=== PATIENT | male | born 1970 | race American Indian/Alaskan Native ===

== ENCOUNTER 2017-08-28 20:50 | Emergency (ER) | payer OTHER ==
--- NOTE | 2017-08-28 23:05 | XRay Report ---
FINAL REPORT PROCEDURE: Chest. TECHNIQUE: PA and lateral views. HISTORY: Cough. COMPARISON: No prior studies are available for comparison. FINDINGS: The radiographs are underpenetrated. The heart size is normal. There is a soft tissue opacity in the superior mediastinum. This pushes the trachea to the right. This could represent a substernal goiter, however other masses are possible. There is also a rounded mass located posterior and inferior to the ruthann. On the lateral view this measures approximately 8.5 centimeters in height by 4.8 centimeters in depth. Further evaluation with a contrast enhanced CT scan is recommended. The lungs are clear and well expanded. There are no pleural effusions. The soft tissues and regional skeleton are unremarkable. IMPRESSION: Abnormal mediastinal masses as described. Further evaluation recommended.
[2017-08-29] MEDS ORDERED: MOTRIN PO ONE (02:04)
[2017-08-29] MEDS ORDERED: TESSALON PERLES PO ONE (02:05)
[2017-08-29] MEDS ORDERED: NACL 0.9% 1000 ML 1,000 ML IV ONE (02:06)
--- NOTE | 2017-08-29 02:20 | Emergency Department Report ---
- General Chief Complaint: Upper Respiratory Infection Stated Complaint: FLU LIKE SX Time Seen by Provider: 08/29/17 02:05 Source: patient Mode of arrival: Ambulatory Limitations: No Limitations - History of Present Illness Initial Comments: This is a 46-year-old male nontoxic, well nourished in appearance, no acute signs of distress presents to the ED with c/o of productive cough, body aches, rhinorrhea, nasal congestion x2 days. Patient describes productive cough as yellow mucus production. Patient denies any sick contacts. 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 Patient denies any recent travels, long car, recent hospital stays. Patient denies any calf pain or calf tenderness. Patient denies any chest pain, short of breath, fever, chills, nausea, vomiting , hemoptysis, numbness, tingling, headache or stiff neck. Patient denies any drug allergies. Patient denies any allergies. 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 MD Complaint: cough, rhinorrhea, nasal congestion -: days(s) (2) Severity: mild Severity scale (0 -10): 8 Quality: aching Consistency: constant Improves With: nothing Worsens With: nothing Associated Symptoms: rhinorrhea, nasal congestion, cough. denies: fever, chills , myalgias, diaphoresis, headache, sore throat, stiff neck, chest pain, shortness of breath, abdominal pain, nausea, vomiting, diarrhea, dysuria, rash, confusion, right sweats, weight loss, epistaxis, hoarseness, ear pain Treatments Prior to Arrival: none - Related Data Previous Rx's Medication Instructions Recorded Last Taken Type Azithromycin [Zithromax Z-DIRK] 250 mg PO DAILY #6 tablet 08/29/17 Unknown Rx Benzonatate [Tessalon Perle] 100 mg PO Q6H PRN #20 capsule 08/29/17 Unknown Rx Ibuprofen [Motrin] 600 mg PO Q8H PRN #30 tablet 08/29/17 Unknown Rx Oseltamivir [Tamiflu] 75 mg PO BID #14 cap 08/29/17 Unknown Rx Allergies Allergy/AdvReac Type Severity Reaction Status Date / Time No Known Allergies Allergy Verified 08/29/17 03:59 ED Review of Systems ROS: Stated complaint: FLU LIKE SX Other details as noted in HPI Constitutional: denies: chills, fever Eyes: denies: eye pain, eye discharge, vision change ENT: denies: ear pain, throat pain Respiratory: cough. denies: shortness of breath, wheezing Cardiovascular: denies: chest pain, palpitations Endocrine: no symptoms reported Gastrointestinal: denies: abdominal pain, nausea, diarrhea Genitourinary: denies: urgency, dysuria Musculoskeletal: denies: back pain, joint swelling, arthralgia Skin: denies: rash, lesions Neurological: denies: headache, weakness, paresthesias Psychiatric: denies: anxiety, depression Hematological/Lymphatic: denies: easy bleeding, easy bruising ED Past Medical Hx - Past Medical History Previous Medical History?: No - Surgical History Past Surgical History?: No - Social History Smoking Status: Never Smoker Substance Use Type: None - Medications Home Medications: Home Medications Medication Instructions Recorded Confirmed Last Taken Type Azithromycin [Zithromax Z-DIRK] 250 mg PO DAILY #6 tablet 08/29/17 Unknown Rx Benzonatate [Tessalon Perle] 100 mg PO Q6H PRN #20 capsule 08/29/17 Unknown Rx Ibuprofen [Motrin] 600 mg PO Q8H PRN #30 tablet 08/29/17 Unknown Rx Oseltamivir [Tamiflu] 75 mg PO BID #14 cap 08/29/17 Unknown Rx ED Physical Exam - General Limitations: No Limitations General appearance: alert, in no apparent distress - Head Head exam: Present: atraumatic, normocephalic - Eye Eye exam: Present: normal appearance, PERRL, EOMI Pupils: Present: normal accommodation - ENT ENT exam: Present: normal exam, normal orophraynx, mucous membranes moist, TM's normal bilaterally, normal external ear exam - Neck Neck exam: Present: normal inspection, full ROM. Absent: tenderness, meningismus, lymphadenopathy, thyromegaly - Respiratory Respiratory exam: Present: normal lung sounds bilaterally. Absent: respiratory distress, wheezes, rales, rhonchi, stridor, chest wall tenderness, accessory muscle use, decreased breath sounds, prolonged expiratory - Cardiovascular Cardiovascular Exam: Present: regular rate, normal rhythm, normal heart sounds. Absent: bradycardia, tachycardia, irregular rhythm, systolic murmur, diastolic murmur, rubs, gallop - GI/Abdominal GI/Abdominal exam: Present: soft, normal bowel sounds. Absent: distended, tenderness, guarding, rebound, rigid, diminished bowel sounds - Rectal Rectal exam: Present: deferred - Extremities Exam Extremities exam: Present: normal inspection, full ROM, normal capillary refill. Absent: tenderness, pedal edema, joint swelling, calf tenderness - Back Exam Back exam: Present: normal inspection, full ROM. Absent: tenderness, CVA tenderness (R), CVA tenderness (L), muscle spasm, paraspinal tenderness, vertebral tenderness, rash noted - Neurological Exam Neurological exam: Present: alert, oriented X3, CN II-XII intact, normal gait, reflexes normal - Psychiatric Psychiatric exam: Present: normal affect, normal mood - Skin Skin exam: Present: warm, dry, intact, normal color. Absent: rash ED Course Vital Signs 08/28/17 21:03 Temperature 97.9 F Pulse Rate 82 Respiratory 17 Rate Blood Pressure 146/76 O2 Sat by Pulse 96 Oximetry - Reevaluation(s) Reevaluation #1: 08/29/17 02:17 Patient is speaking in full sentences with no signs of distress noted. - Consultations Consultation #1: 08/29/17 06:02 Patient has been consulted with Dr. Gramajo about patient history, physical exam, and labs/imaging studies agrees to ED plan of care and discharge plan of care. ED Medical Decision Making - Lab Data Result diagrams: 08/29/17 02:20 08/29/17 02:20 - Medical Decision Making This is a 46-year-old male that presents with upper respiratory infection and influenza. Patient is stable and was examined by me. Chest x-ray has been obtained and dictated by radiologist with mutiple masses in the mediastinal. CT of chest with contrast obtained and dictated by radgolosit. Patient is notified of x-ray results with no questions noted. Patient stated xray and CT findings is normal for him as he had several CT results with same findings and stated he was diagnosed with mutiple "calcium buildup in those regions". Due to patient having symptoms of influenza and upper respiratory infection I will treat patient empirically with Tamiflu and zpak. Patient was instructed to increase hydration, rest and take Motrin for fever episodes. Patient received Motrin and tesslone perrls in the ED. Vitals stable. Patient is nonfebrile and normal heart rate. Patient was orally hydrated and patient tolerated well known nausea or vomiting. Patient was instructed Follow-up with a primary care doctor in 3-5 days or if symptoms worsen and continue return to emergency room as soon as possible. At time time of discharge, the patient does not seem toxic or ill in appearance. No acute signs of distress noted. Patient agrees to discharge treatment plan of care. No further questions noted by the patient. Critical care attestation.: If time is entered above; I have spent that time in minutes in the direct care of this critically ill patient, excluding procedure time. 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 Increase rest, hydration and take Motrin for fever episodes. Prescriptions: Azithromycin [Zithromax Z-DIRK] 250 mg PO DAILY #6 tablet Benzonatate [Tessalon Perle] 100 mg PO Q6H PRN #20 capsule PRN Reason: Cough Ibuprofen [Motrin] 600 mg PO Q8H PRN #30 tablet PRN Reason: Pain Oseltamivir [Tamiflu] 75 mg PO BID #14 cap Referrals: PRIMARY MD VERONICA [Primary Care Provider] - 3-5 Days WESLEY SALMERON [Registered Nurse] - 3-5 Days ESEQUIEL HUTCHINS MD [Staff Physician] - 3-5 Days DALILA LEDEZMA MD [Staff Physician] - 3-5 Days [facility] [Outside] - 3-5 Days [facility] [Outside] - 3-5 Days Forms: Work/School Release Form(ED)
[2017-08-29 02:51] LABS: Basophils % (Auto) 0.3 % (0.0-1.8); Eosinophils # (Auto) 0.3 K/mm3 (0.0-0.4); Eosinophils % (Auto) 3.3 % (0.0-4.3); Hematocrit 44.7 % (35.5-45.6); Hemoglobin 14.6 gm/dl (11.8-15.2); Lymphocytes # (Auto) 2.4 K/mm3 (1.2-5.4); Lymphocytes % (Auto) 31.3 % (13.4-35.0); Mean Corpuscular HGB Conc 33 % (32-34); Mean Corpuscular Hemoglobin 28 pg (28-32); Mean Corpuscular Volume 87 fl (84-94); Monocytes # (Auto) 0.9 K/mm3 (0.0-0.8); Monocytes % (Auto) 11.8 % (0.0-7.3); Platelet Count 243 K/mm3 (140-440); Red Blood Count 5.14 M/mm3 (3.65-5.03); Red Cell Distribution Width 13.6 % (13.2-15.2)
[2017-08-29 03:15] LABS: BUN/Creatinine Ratio 13; Blood Urea Nitrogen 12 mg/dL (9-20); Calcium 8.9 mg/dL (8.4-10.2); Hemolysis Index 3
[2017-08-29] MEDS ORDERED: NACL ONE (03:39)
--- NOTE | 2017-08-29 05:54 | Cat Scan Report ---
FINAL REPORT PROCEDURE: CT CHEST W CON TECHNIQUE: Computerized axial tomography of the chest was performed during the IV injection of iodinated nonionic contrast. HISTORY: cough with abnormal xray COMPARISON: No prior studies are available for comparison. TECHNICAL QUALITY: Satisfactory. FINDINGS: Heart and pericardium: Normal. Thoracic aorta: Normal. Pulmonary vasculature: Normal. Lymph nodes: There is a calcified mass in the right azygos esophageal recess extending into the subcarinal space of the mediastinum and the right is hilar region. This measures 6.6 x 12.3 by 5 centimeters. This could be a large calcified lymph node or crescencio mass possibly associated with old granulomatous infection including tuberculosis or histoplasmosis. Possibilities also include sarcoidosis, silicosis or treated lymphoma.. Metastatic malignancy not excluded. Lungs: Lungs are well-expanded. There are no active infiltrates. There is no pulmonary nodule or parenchymal mass. Pleural space: No effusion, thickening, or pneumothorax. Musculoskeletal structures: No significant abnormality. Upper abdominal structures: Images of the upper abdomen demonstrate a 16 millimeter enhancing mass in the right lobe of the liver. This could be an adenoma, atypical hemangioma or neoplasm. There is fatty infiltration of the liver.. There is a partially imaged left thyroid mass extending into the superior mediastinum measuring at least 11 centimeters suggesting substernal goiter. IMPRESSION: There is a calcified mass in the right azygos esophageal recess extending into the subcarinal space of the mediastinum and the right is hilar region. This measures 6.6 x 12.3 by 5 centimeters. This could be a large calcified lymph node or crescencio mass possibly associated with old granulomatous infection including tuberculosis or histoplasmosis. Possibilities also include sarcoidosis, silicosis or treated lymphoma.. Metastatic malignancy not excluded. Lungs are well-expanded. There are no active infiltrates. There is no pulmonary nodule or parenchymal mass. There is no pleural effusion or pneumothorax. There is a 16 millimeter enhancing mass in the right lobe of the liver. This could be an adenoma, atypical hemangioma or neoplasm. There is fatty infiltration of the liver.. There is a partially imaged left thyroid mass extending into the superior mediastinum measuring at least 11 centimeters suggesting substernal goiter.
[2017-08-29 07:31] VITALS: BP 138/74
== END 2017-08-29 07:29 | disposition home or self-care (01) ==
LOC: ED 20:50
DX: J11.1 Influenza due to unidentified influenza virus with other respiratory manifestations (principal); E04.9 Nontoxic goiter, unspecified; R91.8 Other nonspecific abnormal finding of lung field; J06.9 Acute upper respiratory infection, unspecified
CPT/HCPCS: 36415; 71046; 71260; 80048; 82550; 85025; 99284; J7030; Q9967

== ENCOUNTER 2017-09-22 20:25 | Emergency (ER) | payer OTHER ==
--- NOTE | 2017-09-23 02:35 | Emergency Department Report ---
ED Headache HPI - General Chief Complaint: Headache Stated Complaint: HTN,H/A Time Seen by Provider: 09/23/17 01:30 Source: patient, family Exam Limitations: no limitations - History of Present Illness Initial Comments: Patient here reported headache that feels like pressure that started last night it's been waxing and waning in. Reported dizziness with some nausea. Pain feels like pressure 8 out of 10 located to both sides of her head. Bilateral parietal area. Patient had several similar headache and said he had CT scan 2 years ago and he didn't see any abnormality. Patient's also reporting that he has a rash in the left side of his neck that he has had in the past but has not follow-up for that either. Rash is itchy but not painful. He denies any chest pain or shortness of breath. Patient is here he said they just moved here and he has not established a primary care physician and he is on blood pressure medication for high blood pressure which is HCTZ. He produced the empty prescription bottle. He said he is out of this medication and also needs to be referred to primary care for management of his blood pressure. Patient was here on 08/29/2017 and was treated for flulike symptoms. He came in with cough and congestion and had a CT scan done of his chest with IV contrast due to abnormal x-ray and it showed that patient had calcified mass in the regions of lymph nodes. Lungs are well-expanded. No active infiltrates. There were no pulmonary nodules or peritoneal mass. Patient said that he is had this for 10 years and they told them if the calcification. Patient is not having any respiratory symptoms. Denies any fever. Denies any vomiting. Denies any abdominal pain or diarrhea. [id number] pain medication taking with little relief. He denies any neck stiffness. Denies any nasal congestion or coughing. Timing/Duration: episodic, waxing and waning Quality: severe, achy, pressure Head Injury Location: parietal Recent Head Trauma: chronic headaches Modifying Factors: improves with: movement, rest Associated Symptoms: nausea/vomiting, rash, other (reports neck pain and dizziness). denies: confusion, fatigue, facial pain, loss of consciousness, nasal congestion, nasal drainage, numbness in legs/feet, seizures, sinus infection, stiff neck, vision changes, weakness Allergies/Adverse Reactions: Allergies No Known Allergies Allergy (Verified 08/29/17 03:59) Home Medications: Ambulatory Orders Azithromycin [Zithromax Z-DIRK] 250 mg PO DAILY #6 tablet 08/29/17 Benzonatate [Tessalon Perle] 100 mg PO Q6H PRN #20 capsule 08/29/17 Ibuprofen [Motrin] 600 mg PO Q8H PRN #30 tablet 08/29/17 Oseltamivir [Tamiflu] 75 mg PO BID #14 cap 08/29/17 Hydrochlorothiazide [HCTZ] 25 mg PO QDAY 30 Days #30 tablet 09/23/17 Ondansetron [Zofran Odt] 4 mg PO Q8H PRN #12 tab.rapdis 09/23/17 Triamcinolone 0.1% [Kenalog 0.1% CREAM] 1 applic TP BID 7 Days #1 tube 09/23/17 traMADol [Ultram] 50 mg PO Q6HR PRN #12 tablet 09/23/17 ED Review of Systems ROS: Stated complaint: HTN,H/A Other details as noted in HPI Comment: All other systems reviewed and negative Constitutional: no symptoms reported ENT: denies: ear pain, throat pain, epistaxis, congestion Respiratory: no symptoms reported Cardiovascular: denies: chest pain, palpitations, dyspnea on exertion, edema, syncope, paroxysmal nocturnal dyspnea Gastrointestinal: nausea. denies: abdominal pain, vomiting, constipation, hematemesis, melena, hematochezia Genitourinary: denies: dysuria, hematuria Musculoskeletal: arthralgia. denies: back pain, joint swelling, myalgia Skin: rash, pruritus Neurological: headache, other (dizziness). denies: weakness, numbness, paresthesias, confusion, abnormal gait, vertigo ED Past Medical Hx - Past Medical History Previous Medical History?: Yes Hx Hypertension: Yes (ran out of HCTZ) Additional medical history: thyroid prob. Calcified mass in lymph nodes chest greater than 10 years - Surgical History Past Surgical History?: No - Family History Family history: hypertension - Social History Smoking Status: Never Smoker Substance Use Type: None - Medications Home Medications: Home Medications Medication Instructions Recorded Confirmed Last Taken Type Azithromycin [Zithromax Z-DIRK] 250 mg PO DAILY #6 tablet 08/29/17 Unknown Rx Benzonatate [Tessalon Perle] 100 mg PO Q6H PRN #20 capsule 08/29/17 Unknown Rx Ibuprofen [Motrin] 600 mg PO Q8H PRN #30 tablet 08/29/17 Unknown Rx Oseltamivir [Tamiflu] 75 mg PO BID #14 cap 08/29/17 Unknown Rx Hydrochlorothiazide [HCTZ] 25 mg PO QDAY 30 Days #30 tablet 09/23/17 Unknown Rx Ondansetron [Zofran Odt] 4 mg PO Q8H PRN #12 tab.rapdis 09/23/17 Unknown Rx Triamcinolone 0.1% [Kenalog 0.1% 1 applic TP BID 7 Days #1 tube 09/23/17 Unknown Rx CREAM] traMADol [Ultram] 50 mg PO Q6HR PRN #12 tablet 09/23/17 Unknown Rx ED Physical Exam - General Limitations: No Limitations General appearance: alert, in no apparent distress - Head Head exam: Present: atraumatic, normocephalic, normal inspection - Expanded Head Exam Expanded Head exam: Absent: laceration, abrasion, contusion, hematoma, racoon eyes, wolf's sign, general tenderness, tenderness of temporal artery, CSF rhinorrhea , CSF otorrhea - Eye Eye exam: Present: normal appearance, PERRL, EOMI. Absent: scleral icterus, conjunctival injection, nystagmus, periorbital swelling, periorbital tenderness Pupils: Present: normal accommodation - ENT ENT exam: Present: normal exam, normal orophraynx, mucous membranes moist, TM's normal bilaterally, normal external ear exam - Neck Neck exam: Present: normal inspection, full ROM, other (no C-spine tenderness). Absent: tenderness, meningismus, lymphadenopathy, thyromegaly - Expanded Neck Exam Expanded Neck exam: Absent: tenderness, midline deformity, anterior neck swelling, carotid bruit, tracheal deviation - Respiratory Respiratory exam: Present: normal lung sounds bilaterally. Absent: respiratory distress, chest wall tenderness - Cardiovascular Cardiovascular Exam: Present: regular rate, normal rhythm, normal heart sounds. Absent: systolic murmur, diastolic murmur - GI/Abdominal GI/Abdominal exam: Present: soft, normal bowel sounds. Absent: distended, tenderness, guarding, rebound, rigid, organomegaly, mass, bruit, pulsatile mass , hernia - Extremities Exam Extremities exam: Present: normal inspection, full ROM, normal capillary refill , other (no no clubbing, cyanosis or edema. +2 pulses all extremities and no neurovascular compromise). Absent: tenderness, pedal edema, joint swelling, calf tenderness - Back Exam Back exam: Present: normal inspection, full ROM, other (ambulates without any difficulties.). Absent: tenderness, CVA tenderness (L), muscle spasm, paraspinal tenderness, vertebral tenderness, rash noted - Neurological Exam Neurological exam: Present: alert, oriented X3, normal gait, reflexes normal. Absent: motor sensory deficit - Expanded Neurological Exam Expanded Neurological exam: Absent: innattentive, memory loss-remote event, memory loss- recent event, ataxia, receptive aphasia, expressive aphasia, total aphasia, tremor, protecting the airway Patient oriented to: Present: person, place, time Speech: Present: fluid speech Cranial nerves: EOM's Intact: Normal, Gag Reflex: Normal, Tongue Deviation: Normal, Nystagmus: Normal, Facial Sensation: Normal Cerebellar function: Romberg: Normal Upper motor neuron: Pronator Drift: Normal, Sensory Extinction: Normal Sensory exam: Upper Extremity Light Touch: Normal, Upper Extremity Pin Prick: Normal, Upper Extremity Temperature: Normal, UE 2 Point Discrimination: Normal, Lower Extremity Light Touch: Normal, Lower Extremity Pin Prick: Normal, Lower Extremity Temperature: Normal, LE 2 Point Discrimination: Normal Motor strength exam: RUE: 5, LUE: 5, RLE: 5, LLE: 5 DTR: bicep (R): 2+, bicep (L): 2+, tricep (R): 2+, tricep (L): 2+, knee (R): 2+ , knee (L): 2+, ankle (R): 2+, ankle (L): 2+ Best Eye Response ([place]): (4) open spontaneously Best Motor Response ([place]): (6) obeys commands Best Verbal Response ([place]): (5) oriented [place] Total: 15 - Psychiatric Psychiatric exam: Present: normal affect, normal mood - Skin Skin exam: Present: warm, dry, normal color, rash. Absent: erythema, urticaria , vesicles - Expanded Skin Exam Expanded Type of lesion: Present: rash Distribution of rash: neck (left posterior neck) Description of rash: Present: macular, papular. Absent: tenderness, erythematous, swelling, vesicular, blisters, confluent, bullous, petechial, purpuic, urticarial, crusting, discharge, fluctuant, indurated 1 - Maculopapular rash noted to left posterior neck. No signs of infection. Appears to be contact dermatitis. ED Course Vital Signs 09/22/17 21:35 Temperature 98.7 F Pulse Rate 83 Respiratory 18 Rate Blood Pressure 148/83 O2 Sat by Pulse 96 Oximetry Vital Signs 09/22/17 21:35 Temperature 98.7 F Pulse Rate 83 Respiratory 18 Rate Blood Pressure 148/83 O2 Sat by Pulse 96 Oximetry Vital Signs (72 hours) 09/22/17 21:35 Temperature 98.7 F Pulse Rate 83 Respiratory 18 Rate Blood Pressure 148/83 O2 Sat by Pulse 96 Oximetry - Reevaluation(s) Reevaluation #1: 09/23/17 02:53 Patient vital signs remained stable throughout ED course. Headache had subsided without any medication. Patient refused CT scan of the head because he said he does not time and he has to go to work tomorrow. See signed refusal. She given Tylenol 3 2 tablets when necessary emergency room for headache. His nausea and neck pain has resolved. ED Medical Decision Making - Medical Decision Making ED course: Patient here complaining of headache, nausea with dizziness and neck pain. He said he had similar episodes in the past. He's had multiple episodes of headache and thought that his headache is like his of his blood pressure because he ran out of his blood pressure medication. Patient blood pressure remained stable throughout ED stay. He is neurologically intact with no C- spine tenderness. Patient has rash to left side of her neck that appears allergic in nature. He's also studies had similar rashes in the past. Patient was here on August 2017 and was diagnosed with viral infection and was treated. He had a CT scan of the chest with IV contrast due to abnormal x-ray which showed calcified mass in the areas of lymph nodes and patient's studies had this for over 10 years. Patient is not complaining of any respiratory symptoms. Patient given Tylenol 3 2 tablets prior to discharge Patient refused CT scan of the head because he said he does not want to wait. He said he thought his blood pressure was elevated but it stable and he is at work and morning. Please refer to fine refusal for CT scan of the head. Patient may take exam is normal. I discussed the patient that it is very imperative that he follows up with primary care doctor to manage his multiple medical problem to include high blood pressure, thyroid problem that he said he supposed to be following up with a doctor for. I also discussed with him due to his chronic headaches he will need to follow up with a neurologist for further evaluation. Patient does have access to healthcare. He agrees to follow up with primary care and neurologist. Patient discharged home in stable condition with prescription for Ultram and refill on HCTZ. I discussed with him that he needs to make sure that he eats at least 2 bananas a day to prevent low potassium as water medication for his blood pressure can cause low potassium. Patient is stable and discharged home with his remember in stable condition. Critical care attestation.: If time is entered above; I have spent that time in minutes in the direct care of this critically ill patient, excluding procedure time. ED Disposition Clinical Impression: Dizziness, Patient refusal of treatment, Medication refill, Nausea alone, Neck pain, bilateral Headache Qualifiers: Headache type: unspecified Headache chronicity pattern: episodic headache Intractability: not intractable Qualified Code(s): R51 - Headache Contact dermatitis Qualifiers: Contact dermatitis type: unspecified Contact dermatitis trigger: unspecified trigger Qualified Code(s): L25.9 - Unspecified contact dermatitis, unspecified cause Disposition: DC-01 TO HOME OR SELFCARE Is pt being admited?: No Does the pt Need Aspirin: No Condition: Stable Instructions: Acute Headache (ED), Musculoskeletal Pain (ED) Additional Instructions: Please follow up with primary care doctors referrals. Call in the morning to schedule appointment. You need a primary care doctor to manage her chronic medical problem. Diagnosis of high blood pressure needs to be managed by a primary care doctor because she will need to have occasional lab work to monitor your kidney function. Please follow up with neurologist regarding chronic headaches. Take medication for skin rash Take Ultram for headache but please do not drive or operate heavy machinery while taking this medication as this medication can cause drowsiness. You can take zofran for nausea as needed. Prescriptions: Hydrochlorothiazide [HCTZ] 25 mg PO QDAY 30 Days #30 tablet Ondansetron [Zofran Odt] 4 mg PO Q8H PRN #12 tab.rapdis PRN Reason: Nausea And Vomiting traMADol [Ultram] 50 mg PO Q6HR PRN #12 tablet PRN Reason: Pain Triamcinolone 0.1% [Kenalog 0.1% CREAM] 1 applic TP BID 7 Days #1 tube Referrals: [facility] [Outside] - 09/24/17 ELIZABETH PHAN MD [Staff Physician] - 3-5 Days ELIZABETH SALAZAR MD [Staff Physician] - 09/24/17 DILIA MOROCHO MD [Staff Physician] - 09/24/17 Forms: Accompanied Note, Work/School Release Form(ED)
[2017-09-23] MEDS ORDERED: TYLENOL #3 PO ONE (02:58)
[2017-09-23 03:20] VITALS: BP 116/80
== END 2017-09-23 03:19 | disposition home or self-care (01) ==
LOC: ED 20:25
DX: R42 Dizziness and giddiness (principal); R51 Headache; M54.2 Cervicalgia; R11.0 Nausea; L25.9 Unspecified contact dermatitis, unspecified cause; I10 Essential (primary) hypertension
CPT/HCPCS: 99282

== ENCOUNTER 2018-01-04 13:18 | Emergency (ER) | payer SELFPAY ==
[2018-01-04 13:36] VITALS: BP 159/84
[2018-01-04] MEDS ORDERED: FUL-GLO OP ONE (14:10)
[2018-01-04] MEDS ORDERED: TETRACAINE 0.5% OU ONE (14:11)
--- NOTE | 2018-01-04 14:12 | Emergency Department Report ---
Chief Complaint: Eye Problems Stated Complaint: BILATERAL EYE PAIN Time Seen by Provider: 01/04/18 14:05 - HPI History of Present Illness: 47-year-old Afro-[place]onese male presents to the emergency department with complaint of a one to 2 day history of bilateral eye redness, irritation and now since this morning some discharge and crusting. He says that he does have his grandchildren staying with them and they have some cold-like symptoms but none of them have any eye complaints or similar symptoms. He wears contacts. 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 He denies any fever, headache. He has not taken anything for her symptoms prior presentation. - ROS Review of Systems: Positive for eye redness, irritation, discharge, crusting Negative for fever, headache - Exam Vital Signs: Vital Signs 01/04/18 13:33 Temperature 98.6 F Pulse Rate 94 H Blood Pressure 159/84 O2 Sat by Pulse 96 Oximetry Physical Exam: Pupils equal reactive to light bilaterally. Extraocular motion intact. He has bilateral conjunctival injection. MSE screening note: Focused history and physical exam performed. Due to findings the following was ordered: He will have a visual acuity test. He will get tetracaine and fluorescein and used the Wood's lamp to check for corneal abrasion or fluorescein uptake. ED Disposition for MSE Condition: Stable Referrals: PRIMARY CARE, [Primary Care Provider] - 3-5 Days
--- NOTE | 2018-01-04 15:00 | Emergency Department Report ---
HPI - General Chief Complaint: Eye Problems Time Seen by Provider: 01/04/18 14:05 - HPI HPI: 47-year-old Afro-[place] male presents to the emergency department with complaint of a one to 2 day history of bilateral eye redness, irritation and now since this morning some discharge and crusting. He says that he does have his grandchildren staying with them and they have some cold-like symptoms but none of them have any eye complaints or similar symptoms. He wears contacts. 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 He denies any fever, headache. He has not taken anything for her symptoms prior presentation. ED Past Medical Hx - Past Medical History Hx Hypertension: Yes (ran out of HCTZ) Additional medical history: thyroid prob. Calcified mass in lymph nodes chest greater than 10 years - Surgical History Past Surgical History?: No - Social History Smoking Status: Never Smoker Substance Use Type: None - Medications Home Medications: Home Medications Medication Instructions Recorded Confirmed Last Taken Type Azithromycin [Zithromax Z-DIRK] 250 mg PO DAILY #6 tablet 08/29/17 Unknown Rx Benzonatate [Tessalon Perle] 100 mg PO Q6H PRN #20 capsule 08/29/17 Unknown Rx Ibuprofen [Motrin] 600 mg PO Q8H PRN #30 tablet 08/29/17 Unknown Rx Oseltamivir [Tamiflu] 75 mg PO BID #14 cap 08/29/17 Unknown Rx Hydrochlorothiazide [HCTZ] 25 mg PO QDAY 30 Days #30 tablet 09/23/17 Unknown Rx Ondansetron [Zofran Odt] 4 mg PO Q8H PRN #12 tab.rapdis 09/23/17 Unknown Rx Triamcinolone 0.1% [Kenalog 0.1% 1 applic TP BID 7 Days #1 tube 09/23/17 Unknown Rx CREAM] traMADol [Ultram] 50 mg PO Q6HR PRN #12 tablet 09/23/17 Unknown Rx Tobramycin [Tobrex] 1 drop OU Q6H #1 bottle 01/04/18 Unknown Rx ED Review of Systems ROS: Stated complaint: BILATERAL EYE PAIN Other details as noted in HPI Comment: All other systems reviewed and negative Constitutional: denies: chills, fever Eyes: eye pain, eye discharge ENT: denies: ear pain, throat pain Respiratory: denies: cough, shortness of breath Cardiovascular: denies: chest pain, palpitations Gastrointestinal: denies: abdominal pain, nausea Genitourinary: denies: urgency, dysuria Musculoskeletal: denies: back pain, joint swelling, arthralgia Skin: denies: rash, lesions Neurological: denies: headache, weakness Physical Exam - Physical Exam Vital Signs: Vital Signs 01/04/18 13:33 Temperature 98.6 F Pulse Rate 94 H Blood Pressure 159/84 O2 Sat by Pulse 96 Oximetry Physical Exam: GENERAL: The patient is well-developed well-nourished. HENT: Normocephalic. Atraumatic. Patient has moist mucous membranes. EYES: Extraocular motions are intact. Pupils equal reactive to light bilaterally. No nystagmus. Bilateral diffusely injected conjunctiva. There is some mild tearing. There is no fluorescein uptake with wood lamp examination. NECK: Supple. Trachea is midline. CHEST/LUNGS: Clear to auscultation. There is no respiratory distress noted. HEART/CARDIOVASCULAR: Regular. There is no tachycardia. There is no murmur. ABDOMEN: There is no abdominal distention. SKIN: Skin is warm and dry. NEURO: The patient is awake, alert, and oriented. The patient is cooperative. The patient has no focal neurologic deficits. The patient has normal speech. MUSCULOSKELETAL: There is no tenderness or deformity. There is no limitation range of motion. There is no evidence of acute injury. ED Course Vital Signs 01/04/18 13:33 Temperature 98.6 F Pulse Rate 94 H Blood Pressure 159/84 O2 Sat by Pulse 96 Oximetry ED Medical Decision Making - Medical Decision Making Patient presents with a 2 day history of some redness and irritation to the bilateral eyes. No vision change. Vital signs stable. Being afebrile. There was no sign of any corneal abrasion or ulceration or any fluorescein uptake on examination. It appears most consistent with bilateral conjunctivitis. Since he has the complaint of some previous discharge and crusting, and will be treated as a bacterial conjunctivitis and he has been placed on Tobrex. 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 We discussed infection control. He has been given referrals for ophthalmologists for both this conjunctivitis as well as to establish care with one since he already wears glasses and/or contacts. He will return to the ER with any worsening of his symptoms or any acute distress. - Differential Diagnosis conjunctivitis, corneal abrasion, iritis Critical Care Time: No Critical care attestation.: If time is entered above; I have spent that time in minutes in the direct care of this critically ill patient, excluding procedure time. ED Disposition Clinical Impression: Bilateral conjunctivitis Qualifiers: Conjunctivitis type: acute Acute conjunctivitis type: unspecified Qualified Code(s): H10.33 - Unspecified acute conjunctivitis, bilateral Hypertension Qualifiers: Hypertension type: essential hypertension Qualified Code(s): I10 - Essential ( primary) hypertension Disposition: DC- TO HOME OR SELFCARE Is pt being admited?: No Condition: Stable Instructions: Conjunctivitis (ED), Hypertension (ED) Additional Instructions: Please follow up with a primary care physician in the next few days. I have also given a referral for multiple ophthalmologists to follow up regarding your conjunctivitis as well as to establish care regarding your need for contact/ glasses. Return to the emergency Department with any worsening of her symptoms or any acute distress. Make sure that you wash your hands thoroughly and that you do not touch your eyes and then anybody else or anybody else's food/drinks to try and avoid the spread of infection. I recommend washing your pillow cases and sheets. Prescriptions: Tobramycin [Tobrex] 1 drop OU Q6H #1 bottle Referrals: KELLY ADAMS MD [Staff Physician] - 2-3 Days [facility] [Provider Group] - 2-3 Days PRIMARY CARE, [Primary Care Provider] - 3-5 Days Forms: Work/School Release Form(ED) Time of Disposition: 15:00
== END 2018-01-04 15:09 | disposition home or self-care (01) ==
LOC: ED 13:18
DX: H10.33 Unspecified acute conjunctivitis, bilateral (principal); I10 Essential (primary) hypertension

== ENCOUNTER 2018-03-07 17:35 | Emergency (ER) | payer OTHER ==
[2018-03-07] MEDS ORDERED: ASPIRIN PO ONE (18:23)
[2018-03-07 19:00] LABS: Basophils # (Auto) 0.1 K/mm3 (0.0-0.1); Basophils % (Auto) 1.1 % (0.0-1.8); Eosinophils # (Auto) 0.2 K/mm3 (0.0-0.4); Eosinophils % (Auto) 1.8 % (0.0-4.3); Hematocrit 45.9 % (35.5-45.6); Hemoglobin 14.9 gm/dl (11.8-15.2); Lymphocytes # (Auto) 2.9 K/mm3 (1.2-5.4); Lymphocytes % (Auto) 28.6 % (13.4-35.0); Mean Corpuscular HGB Conc 33 % (32-34); Mean Corpuscular Hemoglobin 28 pg (28-32); Mean Corpuscular Volume 87 fl (84-94); Monocytes # (Auto) 1.2 K/mm3 (0.0-0.8); Monocytes % (Auto) 11.6 % (0.0-7.3); Platelet Count 299 K/mm3 (140-440); Red Cell Distribution Width 14.1 % (13.2-15.2)
[2018-03-07 19:20] LABS: BUN/Creatinine Ratio 13; Blood Urea Nitrogen 14 mg/dL (9-20); Calcium 9.7 mg/dL (8.4-10.2); Hemolysis Index 15
--- NOTE | 2018-03-07 20:20 | XRay Report ---
FINAL REPORT PROCEDURE: XR CHEST ROUTINE 2V TECHNIQUE: PA and lateral chest radiographs were obtained. CPT 39290 HISTORY: chest pain COMPARISON: 08/28/2017 FINDINGS: Heart: Normal. Mediastinum/Vessels: A left paratracheal mass displacing the trachea to the right consistent with goiter is again noted. A large mediastinal mass as described in the prior chest radiograph and CT chest of 08/29/2017 is again noted without interval change. Lungs/Pleural space: Normal. Bony thorax: No acute osseous abnormality. Other: IMPRESSION: No acute pulmonary process. A large calcified mediastinal mass most likely representing a calcified lymph node is stable. Stable goiter..
--- NOTE | 2018-03-07 22:51 | Emergency Department Report ---
ED General Adult HPI - General Chief complaint: Chest Pain Stated complaint: CHEST PAIN/RT SIDE PAIN/BACK PAIN Time Seen by Provider: 03/07/18 22:48 Source: patient, RN notes reviewed, old records reviewed Mode of arrival: Ambulatory Limitations: No Limitations - History of Present Illness Initial comments: This is a 47-year-old gentleman who is not known to this provider previously. The patient has a primary care doctor, but he can't recall the name of his primary care doctor. He reports a past medical history of hypertension, and childhood fungal disease, goiter, chronic pulmonary calcifications that have been demonstrated on imaging in the past. The patient presents to the ER with complaint of nontraumatic left posterior thoracic pain that radiates around to the front, and resolved shortness of breath. The pain is sharp, and does not have exacerbating or relieving factors. It has since resolved. He currently does not have shortness of breath. He also describes intermittent pain on the right parathoracic region radiating around to the front. He currently does not have chest pain, he denies testicular pain, he denies urinary symptoms, he does have cough. He denies cocaine use, he denies leg pain or leg swelling. He denies lower abdominal pain. -: Gradual Location: back Radiation: other Quality: other Consistency: other Improves with: other Worsens with: other Associated Symptoms: chest pain, shortness of breath. denies: confusion, cough , diaphoresis, fever/chills, headaches, loss of appetite, malaise, nausea/ vomiting, rash, seizure, syncope, weakness - Related Data Previous Rx's Medication Instructions Recorded Last Taken Type Azithromycin [Zithromax Z-DIRK] 250 mg PO DAILY #6 tablet 08/29/17 Unknown Rx Benzonatate [Tessalon Perle] 100 mg PO Q6H PRN #20 capsule 08/29/17 Unknown Rx Ibuprofen [Motrin] 600 mg PO Q8H PRN #30 tablet 08/29/17 Unknown Rx Oseltamivir [Tamiflu] 75 mg PO BID #14 cap 08/29/17 Unknown Rx Ondansetron [Zofran Odt] 4 mg PO Q8H PRN #12 tab.rapdis 09/23/17 Unknown Rx Triamcinolone 0.1% [Kenalog 0.1% 1 applic TP BID 7 Days #1 tube 09/23/17 Unknown Rx CREAM] hydroCHLOROthiazide [HCTZ] 25 mg PO QDAY 30 Days #30 tablet 09/23/17 Unknown Rx traMADol [Ultram] 50 mg PO Q6HR PRN #12 tablet 09/23/17 Unknown Rx Tobramycin [Tobrex] 1 drop OU Q6H #1 bottle 01/04/18 Unknown Rx Acetaminophen [Tylenol Arthritis] 650 mg PO Q6HR PRN #30 tablet.er 03/08/18 Unknown Rx Aspirin [Aspirin BABY CHEW TAB] 81 mg PO QDAY #30 tab.chew 03/08/18 Unknown Rx Ibuprofen [Motrin] 600 mg PO Q8H PRN #30 tablet 03/08/18 Unknown Rx Allergies Allergy/AdvReac Type Severity Reaction Status Date / Time No Known Allergies Allergy Verified 08/29/17 03:59 ED Review of Systems ROS: Stated complaint: CHEST PAIN/RT SIDE PAIN/BACK PAIN Other details as noted in HPI Comment: All other systems reviewed and negative ED Past Medical Hx - Past Medical History Hx Hypertension: Yes (ran out of HCTZ) Additional medical history: thyroid prob. Calcified mass in lymph nodes chest greater than 10 years - Surgical History Past Surgical History?: No - Social History Smoking Status: Never Smoker Substance Use Type: Alcohol - Medications Home Medications: Home Medications Medication Instructions Recorded Confirmed Last Taken Type Azithromycin [Zithromax Z-DIRK] 250 mg PO DAILY #6 tablet 08/29/17 Unknown Rx Benzonatate [Tessalon Perle] 100 mg PO Q6H PRN #20 capsule 08/29/17 Unknown Rx Ibuprofen [Motrin] 600 mg PO Q8H PRN #30 tablet 08/29/17 Unknown Rx Oseltamivir [Tamiflu] 75 mg PO BID #14 cap 08/29/17 Unknown Rx Ondansetron [Zofran Odt] 4 mg PO Q8H PRN #12 tab.rapdis 09/23/17 Unknown Rx Triamcinolone 0.1% [Kenalog 0.1% 1 applic TP BID 7 Days #1 tube 09/23/17 Unknown Rx CREAM] hydroCHLOROthiazide [HCTZ] 25 mg PO QDAY 30 Days #30 tablet 09/23/17 Unknown Rx traMADol [Ultram] 50 mg PO Q6HR PRN #12 tablet 09/23/17 Unknown Rx Tobramycin [Tobrex] 1 drop OU Q6H #1 bottle 01/04/18 Unknown Rx Acetaminophen [Tylenol Arthritis] 650 mg PO Q6HR PRN #30 tablet.er 03/08/18 Unknown Rx Aspirin [Aspirin BABY CHEW TAB] 81 mg PO QDAY #30 tab.chew 03/08/18 Unknown Rx Ibuprofen [Motrin] 600 mg PO Q8H PRN #30 tablet 03/08/18 Unknown Rx ED Physical Exam - General Limitations: No Limitations General appearance: alert, in no apparent distress - Head Head exam: Present: atraumatic, normocephalic - Eye Eye exam: Present: normal appearance, EOMI. Absent: nystagmus - ENT ENT exam: Present: normal exam, normal orophraynx, mucous membranes moist, normal external ear exam - Neck Neck exam: Present: normal inspection, full ROM - Respiratory Respiratory exam: Present: normal lung sounds bilaterally, chest wall tenderness. Absent: respiratory distress - Cardiovascular Cardiovascular Exam: Present: regular rate, normal rhythm. Absent: systolic murmur, diastolic murmur, rubs, gallop - GI/Abdominal GI/Abdominal exam: Present: soft. Absent: distended, tenderness, guarding, rebound, rigid, pulsatile mass - Rectal Rectal exam: Present: deferred - Extremities Exam Extremities exam: Present: normal inspection, full ROM, normal capillary refill , other (2+ pulses noted in the bilateral upper, lower extremities. Compartments soft. No long bony tenderness. The pelvis is stable.). Absent: tenderness, pedal edema, joint swelling, calf tenderness - Back Exam Back exam: Present: normal inspection, full ROM. Absent: tenderness, CVA tenderness (R), paraspinal tenderness, vertebral tenderness - Neurological Exam Neurological exam: Present: alert, oriented X3, CN II-XII intact, normal gait, other (Extraocular movements intact. Tongue midline. No facial droop. Facial sensation intact to light touch in the V1, V2, V3 distribution bilaterally. 5 and 5 strength in 4 extremities.. Sensation is intact to light touch in 4 extremities.). Absent: motor sensory deficit - Psychiatric Psychiatric exam: Present: normal affect, normal mood - Skin Skin exam: Present: warm, dry, intact, normal color. Absent: rash ED Course Vital Signs 03/07/18 03/07/18 03/07/18 18:18 22:42 22:45 Temperature 98 F Pulse Rate 94 H 78 Respiratory 16 12 Rate Blood Pressure 144/81 Blood Pressure [Right] O2 Sat by Pulse 96 92 Oximetry 03/07/18 03/07/18 22:49 23:00 Temperature 98.6 F Pulse Rate 79 82 Respiratory 14 18 Rate Blood Pressure 137/90 Blood Pressure 138/67 [Right] O2 Sat by Pulse 95 96 Oximetry - Reevaluation(s) Reevaluation #1: 03/07/18 23:56 Differential diagnosis, including but not limited to: Musculoskeletal pain, pulmonary embolus, pneumonia, malignancy, acute coronary syndrome, GERD, hiatal hernia, reflux, urinary tract infection, kidney stone Assessment and plan: 47-year-old gentleman with a complaint of left parathoracic back pain that radiates around to the front. It also radiates to the right side. Patient is low risk by CHANO score, low risk by Heart's score. Spun is negative 2, EKG unremarkable and unchanged 2. As per review of old medical records, CT scan of his chest in August of this year suggested possible hepatic malignancy but was nondiagnostic. We will obtain CT scan of the chest to exclude pulmonary embolus and other thoracic causes of chest pain. He walks with a steady gait and appears quite comfortable. If CT scan is negative, patient is at low risk for major adverse cardiac event, and indicates he is reliable to follow-up with outpatient cardiology to complete his workup. ED Medical Decision Making - Lab Data Result diagrams: 03/07/18 18:31 03/07/18 18:31 Vital Signs 03/07/18 18:18 Temperature 98 F Pulse Rate 94 H Respiratory 16 Rate Blood Pressure 144/81 O2 Sat by Pulse 96 Oximetry Lab Results 03/07/18 03/07/18 03/07/18 Range/Units 18:31 18:31 20:53 WBC 10.1 (4.5-11.0) K/mm3 RBC 5.30 H (3.65-5.03) M/mm3 Hgb 14.9 (11.8-15.2) gm/dl Hct 45.9 H (35.5-45.6) % MCV 87 (84-94) fl MCH 28 (28-32) pg MCHC 33 (32-34) % RDW 14.1 (13.2-15.2) % Plt Count 299 (140-440) K/mm3 Lymph % (Auto) 28.6 (13.4-35.0) % [place] % (Auto) 11.6 H (0.0-7.3) % Eos % (Auto) 1.8 (0.0-4.3) % Baso % (Auto) 1.1 (0.0-1.8) % Lymph # 2.9 (1.2-5.4) K/mm3 [place] # 1.2 H (0.0-0.8) K/mm3 Eos # 0.2 (0.0-0.4) K/mm3 Baso # 0.1 (0.0-0.1) K/mm3 Seg Neutrophils % 56.9 (40.0-70.0) % Seg Neutrophils # 5.8 (1.8-7.7) K/mm3 Sodium 139 (137-145) mmol/L Potassium 3.8 (3.6-5.0) mmol/L Chloride 99.0 (98-107) mmol/L Carbon Dioxide 29 (22-30) mmol/L Anion Gap 15 mmol/L BUN 14 (9-20) mg/dL Creatinine 1.1 (0.8-1.5) mg/dL Estimated GFR > 60 ml/min BUN/Creatinine Ratio 13 % Glucose 88 (75-100) mg/dL Calcium 9.7 (8.4-10.2) mg/dL Troponin T < 0.010 < 0.010 (0.00-0.029) ng/mL - EKG Data -: EKG Interpreted by Me EKG shows normal: sinus rhythm Rate: normal - EKG Data 03/07/18 23:58 EKG #1 shows normal sinus, 95 bpm, normal intervals, normal axis, not a STEMI. EKG #2 was unchanged. - Radiology Data Radiology results: report reviewed, image reviewed interpreted by me: Mediastinum/Vessels: A left paratracheal mass displacing the trachea to the right consistent with goiter is again noted. A large mediastinal mass as described in the prior chest radiograph and CT chest of 08/29/2017 is again noted without interval change. Lungs/Pleural space: Normal. Bony thorax: No acute osseous abnormality. Other: IMPRESSION: No acute pulmonary process. A large calcified mediastinal mass most likely representing a calcified lymph node is stable. Stable goiter.. [facility] [address] [place] [address] Cat Scan Report Signed Patient: GONSALO WEISS MR#: [id number] : 1970 Acct:[id number] Age/Sex: 46 / M ADM Date: 08/28/17 Loc: ED Attending Dr: Ordering Physician: KHURRAM JUAREZ NP Date of Service: 08/29/17 Procedure(s): CT chest w con Accession Number(s): [id number] cc: KHURRAM JUAREZ NP FINAL REPORT PROCEDURE: CT CHEST W CON TECHNIQUE: Computerized axial tomography of the chest was performed during the IV injection of iodinated nonionic contrast. HISTORY: cough with abnormal xray COMPARISON: No prior studies are available for comparison. TECHNICAL QUALITY: Satisfactory. FINDINGS: Heart and pericardium: Normal. Thoracic aorta: Normal. Pulmonary vasculature: Normal. Lymph nodes: There is a calcified mass in the right azygos esophageal recess extending into the subcarinal space of the mediastinum and the right is hilar region. This measures 6.6 x 12.3 by 5 centimeters. This could be a large calcified lymph node or crescencio mass possibly associated with old granulomatous infection including tuberculosis or histoplasmosis. Possibilities also include sarcoidosis, silicosis or treated lymphoma.. Metastatic malignancy not excluded. Lungs: Lungs are well-expanded. There are no active infiltrates. There is no pulmonary nodule or parenchymal mass. Pleural space: No effusion, thickening, or pneumothorax. Musculoskeletal structures: No significant abnormality. Upper abdominal structures: Images of the upper abdomen demonstrate a 16 millimeter enhancing mass in the right lobe of the liver. This could be an adenoma, atypical hemangioma or neoplasm. There is fatty infiltration of the liver.. There is a partially imaged left thyroid mass extending into the superior mediastinum measuring at least 11 centimeters suggesting substernal goiter. IMPRESSION: There is a calcified mass in the right azygos esophageal recess extending into the subcarinal space of the mediastinum and the right is hilar region. This measures 6.6 x 12.3 by 5 centimeters. This could be a large calcified lymph node or crescencio mass possibly associated with old granulomatous infection including tuberculosis or histoplasmosis. Possibilities also include sarcoidosis, silicosis or treated lymphoma.. Metastatic malignancy not excluded. Lungs are well-expanded. There are no active infiltrates. There is no pulmonary nodule or parenchymal mass. There is no pleural effusion or pneumothorax. There is a 16 millimeter enhancing mass in the right lobe of the liver. This could be an adenoma, atypical hemangioma or neoplasm. There is fatty infiltration of the liver.. There is a partially imaged left thyroid mass extending into the superior mediastinum measuring at least 11 centimeters suggesting substernal goiter. Critical care attestation.: If time is entered above; I have spent that time in minutes in the direct care of this critically ill patient, excluding procedure time. ED Disposition Clinical Impression: Thoracic back pain, History of dyspnea Disposition: - TO HOME OR SELFCARE Is pt being admited?: No Does the pt Need Aspirin: No Condition: Good Instructions: Dyspnea (ED) Additional Instructions: Drink 6-8 cups of water per day for the next 2-3 days. If patient takes metformin for diabetic control, do not take metformin for the next 48 hours. Follow up with any of the listed cardiology groups within the next 3-5 days. Return to the ER right away with new pain, worsened pain, migration of pain, projectile vomiting, change in mental status, confusion, inability to tolerate liquid feeds. Otherwise, continue current outpatient medications Referrals: PRIMARY CARE, [Primary Care Provider] - 3-5 Days [facility] [Provider Group] - 3-5 Days [facility] [Provider Group] - 3-5 Days
[2018-03-07] MEDS ORDERED: TORADOL IV ONE (23:02)
[2018-03-07] MEDS ORDERED: NACL 0.9% 500 ML 500 ML IV ONE (23:02)
[2018-03-07] MEDS ORDERED: PEPCID IV ONE (23:03)
[2018-03-07] MEDS ORDERED: CARAFATE PO ONE (23:03)
[2018-03-07] MEDS ORDERED: NACL 0.9% 50 ML ONE (23:23)
[2018-03-07 23:36] LABS: INR 0.93 (0.87-1.13)
[2018-03-08 00:13] LABS: Bilirubin,Urine NEG (Negative); Blood,Urine MOD (Negative); Color,Urine Yellow (Yellow); Mucus,Urine FEW /HPF; Protein,Urine <15 mg/dL mg/dL (Negative); WBC,Urine < 1.0 /HPF (0.0-6.0)
--- NOTE | 2018-03-08 00:38 | Cat Scan Report ---
FINAL REPORT PROCEDURE: CT ANGIO CHEST TECHNIQUE: Computerized tomographic angiography of the chest was performed after the IV injection of iodinated nonionic contrast including image processing. The image data was postprocessed using 2-dimensional multiplanar reformatted (MPR) and 3-dimensional (MIP and/or volume rendered) techniques. HISTORY: cp dyspena COMPARISON: 08/29/2017 FINDINGS: Heart and pericardium: The heart size is normal. No pericardial effusion. There is an enlarged thyroid gland with multiple areas of mixed attenuation throughout the right and left lobes. Within the right posterior tracheal region there is a large calcified density most consistent with calcified lymph tissue. This has not changed in size or appearance since prior study.. Thoracic aorta: Normal. Pulmonary vasculature: Normal. Lymph nodes: No enlarged thoracic lymph nodes. Lungs: Mild atelectasis bilateral lower lungs. No consolidation or effusion. No pneumothorax.. Pleural space: No effusion, thickening, or pneumothorax. Musculoskeletal structures: No significant abnormality. Upper abdominal structures: No significant abnormality. IMPRESSION: Significantly enlarged thyroid gland with multiple mixed attenuation, this has not changed in size or appearance since prior study. There remains a calcified mass in the right posterior tracheal region, mediastinum measuring up to 6 centimeters. The this is most likely a large calcified lymph mass. This has not changed since prior examination. Mild atelectasis bilateral lower lungs.
[2018-03-08] MEDS ORDERED: ASPIRIN ONE (01:00)
[2018-03-08 01:35] VITALS: BP 133/97
== END 2018-03-08 01:40 | disposition home or self-care (01) ==
LOC: ED 17:35
DX: M54.6 Pain in thoracic spine (principal); R06.00 Dyspnea, unspecified; R07.89 Other chest pain; I10 Essential (primary) hypertension
CPT/HCPCS: 36415; 71046; 71275; 80048; 81001; 83690; 84484; 85025; 85610; 93005; 93010; 96374; 96375; 99285; J1885; J7040; Q9967